=== PATIENT | female | born 1980 | race Caucasian/White ===

== ENCOUNTER 2016-11-07 17:57 | Emergency (ER) | payer OTHER ==
[~2016-11-07 17:57] MED LIST: AMOXICILLIN500 M1 PO; FLEXERIL10 M1 PO; FLEXERIL10 MG PO; LORTAB 5/500 TA1 TA1 PO; LORTAB 7.5-5001 TAB PO; LORTAB ELIXIR480 ML PO; NAPROXEN500 M1 PO; NO MEDICATIONS; ORUDIS75 M1 PO; TYLOX 5/500 CAP1 CAP PO; VOLTAREN75 MG PO; ZITHROMAX PO
== END 2016-11-07 18:40 | disposition home or self-care (01) ==
LOC: CED 17:57 → CFTX 17:57
DX: H01.001 Unspecified blepharitis right upper eyelid (principal); R03.0 Elevated blood-pressure reading, without diagnosis of hypertension; F17.210 Nicotine dependence, cigarettes, uncomplicated; Z98.51 Tubal ligation status
CPT/HCPCS: 99282; 99283